=== PATIENT | male | born 1950 | race Caucasian/White ===

== ENCOUNTER → 2017-10-31 | Day surgery (SDC) | payer MEDICARE, OTHER ==
--- NOTE | 2017-10-27 14:53 | Diagnostic Imaging Report ---
PROCEDURE: Frontal and lateral views of the chest. COMPARISON: Patients [facility], , CHEST 2 VIEWS, 02/11/2016, 16:58. INDICATIONS: PRE-OPERATIVE CHEST X-RAY FOR NOSE SURGERY. FINDINGS: Lines/tubes: None. Lungs: The lungs are well inflated and clear. There is no evidence of pneumonia or pulmonary edema. Pleura: There is no pleural effusion or pneumothorax. Heart and mediastinum: Cardiac silhouette is unremarkable. Pulmonary vasculature is normal. Bones and soft tissues: No acute bony abnormality. Stable 7-8 mm nodular lesion in the left axillary region, likely representing a calcified lymph node. IMPRESSION: 1. No acute cardiopulmonary abnormalities. Ho Lynch M.D. Dictated by: Ho Lynch M.D. on 10/27/2017 at 14:55 Electronically approved by: Ho Lynch M.D. on 10/27/2017 at 14:55
[2017-10-27 14:54] LABS: BASOPHILS # (AUTO) 0.1 (0.0-0.1); BASOPHILS % 0.6 % (0.0-1.0); EOSINOPHILS # (AUTO) 0.1 (0.0-0.4); HEMATOCRIT 42.4 % (38.2-49.6); HEMOGLOBIN 14.5 g/dL (14.0-18.0); LYMPHOCYTES # (AUTO) 2.1 (1.0-3.2); LYMPHOCYTES % 26.1 % (18.0-39.1); MEAN CORPUSCULAR HEMOGLOBIN 29.5 pg (28-32); MEAN CORPUSCULAR HGB CONC 34.2 g/dL (31-35); MEAN CORPUSCULAR VOLUME 86.2 fL (81-99); MONOCYTES # (AUTO) 0.6 (0.2-0.8); MONOCYTES % 7.9 % (4.4-11.3); NEUTROPHILS # (AUTO) 5.1 (2.1-6.9); NEUTROPHILS % 64.2 % (38.7-80.0); PLATELET COUNT 235 x10e3/uL (140-360); RED BLOOD COUNT 4.92 x10e6/uL (4.3-5.7); RED CELL DISTRIBUTION WIDTH 13.6 % (11.7-14.4)
[~2017-10-31] MED LIST: ACETAMINOPHEN 1000 MG/100 ML IV ONE; ADVIL200 MG PO; ASPIR 8181 MG PO; CEFAZOLIN SOD 1 GM VIAL ONE; CHONDROITIN SU100 GM PO; DEXAMETHASONE SOD PHOS INJ 4 MG/ML VIAL ONE; FENTANYL CITRATE/PF 100MCG/2 ML INJ ONE; GLUCOSAMINE1000 MG PO; LABETALOL HCL 5 MG/ML 20ML VIAL ONE; LIDOCAINE 1% W/EPINEPHRINE 20 ML VIAL ONE; LIDOCAINE HCL 2% LOCAL INJ 5 ML SDV VIAL INJ ONE; MIDAZOLAM HCL 2 MG/2 ML VIAL ONE; MOBIC7.5 MG PO; MULTI-VITAMIN1 EACH PO; MUPIROCIN 2% OINT 22 GM TUBE ONE; ONDANSETRON HCL INJ 2 MG/ML VIAL ONE; PROPOFOL IV EMULSION 10 MG/ML 20 ML VIAL ONE; ROCURONIUM BROMIDE 10 MG/ML 5ML VIAL ONE; SEVOFLURANE INHAL SOLN 250 ML PEN BTL ONE; VOLTAREN100 GM TOP
--- OUTSIDE RECORDS SUMMARY | 2017-10-31 06:46 | XMS REPORT ---
Author Author [facility] Address Unknown Phone Unavailable Care Team Providers Care Tractor Operator Helper Name Role Phone ERIK GLASS Unavailable Unavailable Problems This patient has no known problems. Allergies, Adverse Reactions, Alerts This patient has no known allergies or adverse reactions. Medications This patient has no known medications. Results Test Description Test Time Test Comments Text Results Atomic Results Result Comments CHEST [address] [facility] [address], [place] [address] Patient Name: HILL FRIAS MR #: [id number] : 1950 Age/Sex: 67/M Req #: [id number] Adm Physician: Ordered by: ELYSSA HAIDER MD Report #: [id number] Location: OR Room/Bed: Procedure: [id number] DX/CHEST 2 VIEWS Exam Date: 10/27/17 Exam Time: 1420 REPORT STATUS: Signed PROCEDURE: Frontal and lateral views of the chest. COMPARISON: [facility], DX, CHEST 2 VIEWS, 2015, 16:58. INDICATIONS: PRE-OPERATIVE CHEST X-RAY FOR NOSE SURGERY. FINDINGS: Lines/tubes: None. Lungs: The lungs are well inflated and clear. There is no evidence of pneumonia or pulmonary edema. Pleura: There is no pleural effusion or pneumothorax. Heart and mediastinum: Cardiac silhouette is unremarkable. Pulmonary vasculature is normal. Bones and soft tissues: No acute bony abnormality. Stable 7-8 mm nodular lesion in the left axillary region, likely representing a calcified lymph node. IMPRESSION: 1. No acute cardiopulmonary abnormalities. Stephanie Lynch M.D. Dictated by: Stephanie Lynch M.D. on 10/27/2017 at 14:55 Electronically approved by: Stephanie Lynch M.D. on 10/27/2017 at 14:55 Dictated By: STEPHANIE LYNCH MD 145 Transcribed By: MAURO on 10/27/17 145 COPY TO: ELYSSA HAIDER MD
--- NOTE | 2017-10-31 13:48 | Operative Report ---
DATE OF PROCEDURE: October 31, 2017 PREOPERATIVE DIAGNOSIS: Basal cell carcinoma left nose/cheek. POSTOP DIAGNOSIS: Basal cell carcinoma left nose/cheek, status post Mohs micrographic removal of left nose and left medial cheek. OPERATION PERFORMED 1. Debridement of wound approximately 16 cm squared. 2. Left cheek advancement flap 25 cm squared. 3. Axial pattern forehead paramedian flap. ANESTHESIA: General. HISTORY: The patient is a 67-year-old male who underwent Mohs micrographic removal of a very extensive basal cell carcinoma by the dermatology service. This resulted in a defect extending from the midline of the nose involving the left stefano nose and the left medial portion of the cheek. The wound measured approximately 16 cm squared. The nasal lining was present however the alar cartilage had been removed. The risks, benefits and alternatives of treatment were discussed with the patient and the family and they are prepared to undergo the procedures outlined. DETAILS OF PROCEDURE: Patient was marked preoperatively in the holding area. He is brought to the operating theater. After the induction of adequate general anesthesia, he is prepped and draped in a supine position. A time out was performed. A template is made of the wound, and then set aside. The incisions on the left cheek advancement flap were marked out in the nasolabial region and along the infraorbital rim. The entire left cheek was then infiltrated with 1% Xylocaine with epinephrine. Approximately 10 mL was utilized. The incisions were then made through the skin and subcutaneous tissues. Bleeding was controlled using electrocautery. The left cheek is elevated in the deep subcutaneous plane and it is elevated all the way to the lateral orbital rim. The cheek was then advanced medially and then secured on its deep surface using 4-0 Vicryl in an interrupted fashion to have the subcutaneous tissue of the cheek flap fill in the space that was removed during the resection procedure. At this point, the skin edges then are approximated with 5-0 nylon in interrupted horizontal mattress fashion. The previous template that had been made was then placed onto the wound and it was noted that the wound surface area was decreased by approximately 50%. The axial pattern forehead flap that was needed could now measure approximately 2 cm in its widest diameter. At this point a paramedian forehead flap was designed based on the supratrochlear artery. The forehead was then infiltrated with 1% Xylocaine with epinephrine, approximate 10 mL was used. At this point, a paramedian forehead flap was incised through the skin and subcutaneous tissues of the forehead. Distally the flap was elevated in the deep subcutaneous plane and as the flap was raised towards its base it incorporated the muscle in order to incorporate the supratrochlear artery axial pattern blood supply. Once the flap had been raised to the level of the orbital rim, the flap was then placed onto the nasal defect and inset and secured using 5-0 nylon in interrupted horizontal mattress fashion. The forehead was then closed by undermining in the subgaleal plane widely and then using 4-0 Vicryl in interrupted buried fashion to approximate the deep tissues and then 5-0 nylon in interrupted horizontal mattress fashion to approximate the skin. Care was taken to ensure that the closure did not encroach on the base of the pedicle and encroach on the blood supply to the flap. At this point Bactroban ointment was placed on all the incisions. Sterile bulky bandages were fashioned and then the patient was returned to recovery room in satisfactory condition and discharged with a postoperative instruction sheet as well as a followup appointment. The estimated blood loss from the procedure was approximately 15 to 20 mL. Job#: [id number] ALEXA
== END | disposition home or self-care (01) ==
LOC: OR 06:44
PROVIDERS: ATTEND Plastic Surgery
DX: Z48.3 Aftercare following surgery for neoplasm (principal); Z85.828 Personal history of other malignant neoplasm of skin; Z01.810 Encounter for preprocedural cardiovascular examination; Z01.812 Encounter for preprocedural laboratory examination; Z01.818 Encounter for other preprocedural examination; Z79.82 Long term (current) use of aspirin
CPT/HCPCS: 14041; 15731; 36415; 71046; 85025; 93005; J0690; J1100; J2001; J2250; J2405; J3490

== ENCOUNTER → 2017-11-21 | Day surgery (SDC) | payer MEDICARE, OTHER ==
[~2017-11-21] MED LIST changes: -ACETAMINOPHEN 1000 MG/100 ML IV ONE; +BALANCED SALT SOLN (OPTH) 15 ML BTL IO ONE; +FIBERCON625 MG PO; +KETOROLAC TROMETHAMINE 30 MG/ML VIAL ONE; -LABETALOL HCL 5 MG/ML 20ML VIAL ONE; +MORPHINE SULFATE 2 MG/ML SYR ONE; -MUPIROCIN 2% OINT 22 GM TUBE ONE; -ROCURONIUM BROMIDE 10 MG/ML 5ML VIAL ONE
--- NOTE | 2017-11-21 10:13 | Operative Report ---
DATE OF PROCEDURE: November 21, 2017 PREOPERATIVE DIAGNOSIS: Basal cell carcinoma, nose, status post left-sided paramedian forehead flap. POSTOPERATIVE DIAGNOSIS: Basal cell carcinoma, nose, status post left-sided paramedian forehead flap. PROCEDURE PERFORMED: Division and insetting of a paramedian forehead flap. ANESTHESIA: General. HISTORY: Patient is a 67-year-old male who several weeks ago underwent formation of a pedicled axial pattern forehead flap for closure of a Mohs defect of the left side of the nose. The risks, benefits and alternatives of treatment were discussed with the patient. He is prepared to undergo the procedures outlined. DETAILS OF PROCEDURE: Patient was marked preoperatively in the holding area. He was brought to the operating theater. After the induction of adequate general anesthesia, he was prepped and draped in a supine position. A time out was performed. The procedure was begun by first clamping the pedicle between hemostat clamps and observing that the distally based portion of the flap, which is inset into the nose, maintained adequate vascularity. At this point, the pedicle was divided between the clamps sharply, and it was released. On the distal aspect on the donor site nose, the superior margin of the Mohs defect was marked out. The flap was then trimmed to match this contour. The wound edge was then made hemostatic using electrocautery. The flap was trimmed judiciously so that it matched the contours and thicknesses of the lateral side of the nose and cheek. Once again, the wound was irrigated with bacteriostatic saline and then inset closed with 5-0 nylon in interrupted horizontal mattress fashion. At this point, the vertical forehead incision was incised from the base of the pedicle for a distance of several centimeters. The wound edges were made hemostatic using electrocautery. The skin and subcutaneous tissues were then elevated off of the frontalis muscle for a distance of several centimeters to either side of the midline. Once again, the wound was irrigated with bacteriostatic saline. The proximal portion of the flap was then inset. The proximal edge of the flap was divided and trimmed so that it matched the contours of the forehead donor site. Then it was inset with 5-0 nylon in an interrupted horizontal mattress fashion as well. Bactroban ointment and Xeroform gauze were placed on both the nose and forehead. Then sterile dressings were applied. Patient tolerated the procedure well, and estimated blood loss for the procedure was approximately 10 to 15 mL. He was returned to the recovery room in satisfactory condition and discharged with a postoperative instruction sheet as well as a followup appointment. Job#: [id number]
== END | disposition home or self-care (01) ==
LOC: OR 05:57
PROVIDERS: ATTEND Plastic Surgery
DX: Z48.3 Aftercare following surgery for neoplasm (principal); Z85.828 Personal history of other malignant neoplasm of skin; Z79.82 Long term (current) use of aspirin
CPT/HCPCS: 15620; 15630; J0690; J1100; J1885; J2001; J2250; J2270; J2405